=== PATIENT | female | born 1995 | race Caucasian/White ===

== ENCOUNTER 2017-12-13 23:56 | Emergency (ER) | payer OTHER ==
[~2017-12-13] VITALS: Ht 180.3 cm; Wt 134.2 kg
[2017-12-14 00:53] LABS: HEMATOCRIT 43.2 % (36.0-46.0); HEMOGLOBIN 14.7 G/DL (11.9-15.5); MCH 29.9 PG (29.0-34.0); MCV 87.8 FL (83-99); PLATELET COUNT 332 K/uL (156-360); RBC DIS.WIDTH-CV 13.2 % (11.8-14.6); RBC DIS.WIDTH-SD 42.7 % (39-53); RED BLOOD COUNT 4.92 M/uL (3.80-5.20); WHITE BLOOD COUNT 15.1 K/uL (4.1-10.2)
[2017-12-14 01:01] LABS: ALBUMIN 4.4 g/dL (3.2-4.8); CHLORIDE 104 mEq/L (99-109); POTASSIUM 3.9 mEq/L (3.7-5.4); SODIUM 142 mEq/L (136-147)
[2017-12-14 01:03] LABS: GLUCOSE 90 mg/dL (70-99); TOTAL PROTEIN 7.9 g/dL (6.4-8.3)
[2017-12-14 01:05] LABS: TOTAL BILIRUBIN 0.5 mg/dL (0.0-1.0)
[2017-12-14 01:07] LABS: ALKALINE PHOSPHATASE 102 IU/L (3-129); CREATININE 0.9 mg/dL (0.6-1.3); GFR ESTIMATE (CALCULATED) > 59 mL/min/
[2017-12-14 01:08] LABS: AST (GOT) 19 IU/L (2-34); UREA NITROGEN (BUN) 10 mg/dL (9-23)
[2017-12-14 01:10] LABS: ALT (GPT) 23 IU/L (3-49)
[2017-12-14 01:11] LABS: APPEARANCE CLEAR ((CLEAR)); BILIRUBIN NEGATIVE; BLOOD MODERATE; COLOR YELLOW ((YELLOW)); GLUCOSE (STRIP) NEGATIVE; KETONES NEGATIVE; LEUKOCYTES NEGATIVE; NITRITE NEGATIVE; PROTEIN (STRIP) NEGATIVE; SPECIFIC GRAVITY 1.021 (1.000-1.030); UROBILINOGEN 0.2 MG/DL (0.2-1.0)
[2017-12-14 01:15] LABS: BACTERIA NONE SEEN /HPF; EPITHELIAL CELLS RARE /HPF; MUCUS TRACE /LPF; RED BLOOD CELLS 0-5 /HPF (0-5); UCUL ADDED? NO; WHITE BLOOD CELLS 0-5 /HPF (0-5)
[2017-12-14 01:16] LABS: QUANTITATIVE HCG < 4.0 MIU/ML
[2017-12-14] MEDS ORDERED: KEFLEX500 MG PO (06:55)
[2017-12-14 07:25] VITALS: BP 117/68
== END 2017-12-14 07:27 | disposition home or self-care (01) ==
LOC: EME 23:56
DX: R10.31 Right lower quadrant pain (principal); D72.829 Elevated white blood cell count, unspecified
CPT/HCPCS: 74177; 80053; 81003; 84702; 85027; 99281; 99284; J2270; J7030